=== PATIENT | female | born 1990 | race Caucasian/White ===

== ENCOUNTER 2019-02-27 17:29 | Emergency (ER) | payer OTHER ==
[~2019-02-27] VITALS: Ht 157.5 cm; Wt 62.6 kg
[2019-02-27 17:46] VITALS: Ht 157.5 cm; Wt 62.6 kg
[2019-02-27 19:25] LABS: CALCIUM 8.6 mg/dL (8.5-10.1); CARBON DIOXIDE 15.8 mmol/L (21-32); CHLORIDE SERUM 106 mmol/L (98-107); CREATININE SERUM 0.4 mg/dL (0.6-1.0); GFR1 > 60 mL/min; GLUCOSE SERUM 67 mg/dL (74-106); SODIUM SERUM 140 mmol/L (136-145)
[2019-02-27 19:29] LABS: ALKALINE PHOSPHATASE 78 U/L (46-116); ALT/SGPT 14 U/L (14-59); AST/SGOT 14 U/L (15-37); BILIRUBIN TOTAL 0.53 mg/dL (0.20-1.00); TOTAL PROTEIN, SERUM 7.3 g/dL (6.4-8.2)
[2019-02-27 19:31] LABS: UA SPECIFIC GRAVITY >=1.030 (1.005-1.035); microscopic required? YES; urine erythrocyte 2+ (NEGATIVE)
[2019-02-27 19:31] LABS: PLATELET COUNT 281 x10^3mcL (130-400); RED CELL DISTRIBUTION WIDTH 13.3 % (11.5-14.5)
[2019-02-27 20:18] LABS: MONOCYTE 4 % (0-7); SEGMENTED NEUTROPHILS 88 % (37-75)
[2019-02-27 20:21] LABS: PLATELET MORPHOLOGY NORMAL; rbc morphology (normal/abnorm) NORMAL (NORMAL)
[2019-02-27 21:25] VITALS: BP 110/63
== END 2019-02-27 22:32 | disposition home or self-care (01) ==
LOC: ED 17:29
PROVIDERS: Emergency Medicine
DX: O21.0 Mild hyperemesis gravidarum (principal); O26.891 Other specified pregnancy related conditions, first trimester; E16.2 Hypoglycemia, unspecified; Z3A.08 8 weeks gestation of pregnancy
CPT/HCPCS: 82962; J1200; J2765; J7042